=== PATIENT | female | born 1970 | race American Indian/Alaskan Native ===

== ENCOUNTER 2017-09-25 09:29 | Outpatient (CLI) | payer BC ==
--- NOTE | 2017-09-25 11:56 | Mammography Report ---
Bilateral mammogram: No previous studies are labeled. CAD study utilized. Findings: Heterogeneous breast parenchyma bilaterally. Benign calcification left breast. Focal architectural distortion posterior mid left breast. Cluster of calcification lower posterior in left breast. Benign axillary nodes. Impression: Focal architectural distortion left breast. Focal calcification left breast. Comparison with previous studies is recommended. If previous studies are not available spot mag and sonographic examination advise. BI-RADS CATEGORY: 0 = Needs additional imaging evaluation ACR BI-RADS MAMMOGRAPHIC CODES: 0 = Needs additional imaging evaluation; 1 = Negative; 2 = Benign; 3 = Probably benign; 4 = Suspicious; 5 = Malignant; 6 = Known biopsy-proven malignancy COMMENT: 1. Dense breast tissue, i.e., adenosis, fibrocystic changes, etc., may obscure an underlying neoplasm. 2. Approximately 10% of cancers are not detected with mammography. 3. A negative mammography report should not delay biopsy if a clinically suspicious mass is present. COMMENT: Patient follow-up letters are generated in [employer].
== END 2017-09-25 09:30 | disposition home or self-care (01) ==
LOC: SPVWC 09:29
PROVIDERS: ATTEND General Practice
DX: Z12.31 Encounter for screening mammogram for malignant neoplasm of breast (principal)
CPT/HCPCS: 77067

== ENCOUNTER 2017-11-01 13:31 | Outpatient (CLI) | payer BC ==
--- NOTE | 2017-11-01 14:05 | Mammography Report ---
LEFT DIGITAL DIAGNOSTIC MAMMOGRAM : 11/01/17 13:31:00 CLINICAL: Recall to evaluate architectural distortion and separate calcifications. COMPARISON:09/25/17 screening FINDINGS: LM and CC magnification views were performed. Satisfactory effacement of architectural distortion and a single cluster of calcifications with benign morphology. No suspicious finding. IMPRESSION: No mammographic evidence of malignancy. BI-RADS CATEGORY: 2 - - Benign RECOMMENDATION: Routine mammographic screening in one year. ACR BI-RADS MAMMOGRAPHIC CODES: 0 = Needs additional imaging evaluation; 1 = Negative; 2 = Benign; 3 = Probably benign; 4 = Suspicious; 5 = Malignant; 6 = Known biopsy-proven malignancy COMMENT: 1. Dense breast tissue, i.e., adenosis, fibrocystic changes, etc., may obscure an underlying neoplasm. 2. Approximately 10% of cancers are not detected with mammography. 3. A negative mammography report should not delay biopsy if a clinically suspicious mass is present. COMMENT: Patient follow-up letters are generated via our [employer] application.
== END 2017-11-01 13:32 | disposition home or self-care (01) ==
LOC: SPVWC 13:31
PROVIDERS: ATTEND General Practice
DX: R92.1 Mammographic calcification found on diagnostic imaging of breast (principal)